=== PATIENT | male | born 1995 | race Caucasian/White ===

== ENCOUNTER 2016-09-24 03:27 | Emergency (ER) | payer OTHER, BC ==
[2016-09-24 03:33] VITALS: RESP 18
[2016-09-24] MEDS ORDERED: ONDANSETRON 4 MG/2 ML VIAL ONE (03:52)
[2016-09-24] MEDS ORDERED: ONDANSETRON 4 MG/2 ML VIAL IVP ONE (03:58)
[2016-09-24] MEDS ORDERED: NS 1,000 ML IV ONE ×2 (03:58→04:36)
[2016-09-24] MEDS ORDERED: METOCLOPRAMIDE 10 MG/2 ML VIAL IVP ONE (04:36)
[2016-09-24 04:41] LABS: % IMMATURE GRANULYOCYTES 0.4 % (0.0-1.1); ABSOLUTE IMMATURE GRANULOCYTES 0.05 10^3/uL (0.00-0.10); ADD DIFF? NO; ADD MORPH? NO; ADD SCAN? NO; ATYPICAL LYMPHOCYTE FLAG 10 (0-99); FRAGMENT RBC FLAG 0 (0-99); HEMATOCRIT 47.7 % (40.0-51.0); HEMOGLOBIN 16.7 g/dL (13.7-17.5); LEFT SHIFT FLG 0 (0-99); LIPEMIA HEMOLYSIS FLAG 90 (0-99); MEAN CELL HEMOGLOBIN 30.4 pg (27.9-34.1); MEAN CELL VOLUME 86.9 fL (81.5-99.8); MEAN PLATELET VOLUME 10.2 fL (8.7-11.7); PLATELET CLUMPS FLAG 0 (0-99); PLATELET COUNT 269 10^3/uL (150-400); RED BLOOD CELL COUNT 5.49 10^6/uL (4.40-6.38); RED CELL DISTRIBUTION WIDTH 12.2 % (11.5-15.2)
[2016-09-24 04:52] LABS: ALANINE AMINOTRANSFERASE 35 IU/L (21-72); ALBUMIN 5.5 g/dL (3.5-5.0); ALKALINE PHOSPHATASE 61 IU/L (38-126); ANION GAP 18 mEq/L (8-16); ASPARTATE AMINOTRANSFERASE 33 IU/L (17-59); BILIRUBIN,TOTAL 1.5 mg/dL (0.1-1.4); CALCIUM 10.5 mg/dL (8.5-10.4); CARBON DIOXIDE 21 mEq/l (22-31); CHLORIDE 104 mEq/L (97-110); CREATININE 1.1 mg/dL (0.7-1.3); GLOMERULAR FILTRATION RATE > 60; GLUCOSE 106 mg/dL (70-100); POTASSIUM 4.2 mEq/L (3.5-5.2); SODIUM 143 mEq/L (134-144); TOTAL PROTEIN 8.8 g/dL (6.3-8.2)
--- NOTE | 2016-09-24 05:39 | EDPHY ---
H & P Stated Complaint: n,v,d, after eating something bad Time Seen by Provider: 09/24/16 03:56 HPI/ROS: HPI The patient presents with nausea, vomiting, diarrhea which have been present for the last 1 day. He has had multiple episodes of nonbloody nonbilious emesis. He has also had several episodes of diarrhea which is nonbloody. This is associated with diffuse crampy abdominal pain which is moderate in severity. He has no prior history of similar.. REVIEW OF SYSTEMS Constitutional: No fever, no chills. Eyes: No discharge. ENT: No sore throat. Cardiovascular: No chest pain, no palpitations. Respiratory: No cough, no shortness of breath. Gastrointestinal: See HPI Genitourinary: No hematuria. Musculoskeletal: No back pain. Skin: No rashes. Neurological: No headache. PMHx: Healthy, prior orthopedic with surgery Soc Hx: College student PHYSICAL General Appearance: Alert, no distress Eyes: Pupils equal and round no pallor or injection ENT, Mouth: Mucous membranes dry Respiratory: There are no retractions, lungs are clear to auscultation Cardiovascular: Regular rate and rhythm Gastrointestinal: Abdomen is soft and non-tender, no masses, bowel sounds normal Neurological: A&O, moves all extremities Skin: Warm and dry, no rashes Musculoskeletal: Neck is supple non tender Extremities: symmetrical, full range of motion Psychiatric: Patient is oriented X 3, there is no agitation Source: Patient Exam Limitations: No limitations - Personal History Current Tetanus/Diphtheria Vaccine: Yes Current Tetanus Diphtheria and Acellular Pertussis (TDAP): Yes - Medical/Surgical History Hx Asthma: No Hx Chronic Respiratory Disease: No Hx Diabetes: No Hx Cardiac Disease: No Hx Renal Disease: No Hx Cirrhosis: No Hx Alcoholism: No Hx HIV/AIDS: No Hx Splenectomy or Spleen Trauma: No Other PMH: foot surgery - Social History Smoking Status: Current some day smoker Constitutional: Initial Vital Signs Temperature (C) 36.6 C 09/24/16 03:31 Heart Rate 95 09/24/16 03:31 Respiratory Rate 18 09/24/16 03:31 Blood Pressure 133/86 H 09/24/16 03:31 O2 Sat (%) 96 09/24/16 03:31 O2 Delivery Mode Room Air Allergies/Adverse Reactions: No Known Allergies Allergy (Unverified 09/24/16 03:33) Home Medications: Medication Instructions Recorded NK [No Known Home Meds] 11/10/15 Medical Decision Making Differential Diagnosis: This is a 21-year-old healthy male who presents with 1 day of nausea, vomiting, diarrhea. On exam, he is generally well-appearing though mildly dehydrated. His abdominal exam is benign. Differential diagnosis includes viral gastroenteritis, toxin mediated enterocolitis, gastritis. In the emergency room patient was given IV fluids for volume depletion, Reglan and Zofran with improvement in his symptoms. Labs revealed a leukocytosis which could be related to the vomiting verses an infectious process. I doubt any serious abdominal infection such as appendicitis. He felt well enough to be discharged from the emergency room and left in good condition. - Data Points Laboratory Results: Laboratory Results 09/24/16 04:00 09/24/16 04:00 Medications Given: Discontinued Medications Sodium Chloride (Ns) 1,000 mls @ 0 mls/hr IV ONCE ONE PRN Reason: Wide Open Stop: 09/24/16 03:59 Last Admin: 09/24/16 03:59 Dose: 1,000 mls Sodium Chloride (Ns) 1,000 mls @ 0 mls/hr IV ONCE ONE PRN Reason: Wide Open Stop: 09/24/16 04:37 Last Admin: 09/24/16 04:40 Dose: 1,000 mls Metoclopramide HCl (Reglan Injection) 10 mg IVP EDNOW ONE Stop: 09/24/16 04:37 Last Admin: 09/24/16 04:48 Dose: 10 mg Ondansetron HCl (Zofran) 4 mg IVP EDNOW ONE Stop: 09/24/16 03:59 Last Admin: 09/24/16 03:59 Dose: 4 mg Ondansetron HCl (Zofran Odt 4 Mg Prepack#2) 1 btl TAKEHOME EDNOW ONE Stop: 09/24/16 05:44 Last Admin: 09/24/16 05:48 Dose: 1 btl Departure - Departure Disposition: Home, Routine, Self-Care Clinical Impression: Nausea & vomiting, Diarrhea Condition: Good Instructions: Ondansetron (By mouth), Dehydration (ED), Acute Nausea and Vomiting (ED) Additional Instructions: Please return to the emergency room if your worse in any way. You can use Imodium for your diarrhea. Referrals: [facility] [Outside] - As per Instructions Stand Alone Forms: School Excuse
[2016-09-24] MEDS ORDERED: ONDANSETRON 4MG PREPACK#2 BTL TAKEHOME ONE ×2 (05:43)
[2016-09-24 06:01] VITALS: BP 124/82; PULSE 82; TEMP 98.2; O2SAT 94
== END 2016-09-24 06:01 | disposition home or self-care (01) ==
DX: R11.2 Nausea with vomiting, unspecified (principal); R19.7 Diarrhea, unspecified; F17.200 Nicotine dependence, unspecified, uncomplicated
CPT/HCPCS: 96374; J2405; J2765